=== PATIENT | male | born 1955 | race African-American/Black ===

== ENCOUNTER 2019-05-17 15:07 | Emergency (ER) | payer MEDICARE, MEDICAID ==
[~2019-05-17] VITALS: Ht 172.7 cm; Wt 80.0 kg
[2019-05-17 17:39] VITALS: BP 127/71
== END 2019-05-17 17:43 | disposition home or self-care (01) ==
LOC: ER 15:07
DX: G47.00 Insomnia, unspecified (principal); I25.10 Atherosclerotic heart disease of native coronary artery without angina pectoris; E11.9 Type 2 diabetes mellitus without complications; I10 Essential (primary) hypertension
CPT/HCPCS: 82962; 99283